=== PATIENT | male | born 1985 | race Two or more races ===

== ENCOUNTER 2019-07-13 21:58 | Emergency (ER) | payer OTHER ==
[~2019-07-13] VITALS: Ht 172.7 cm; Wt 100.2 kg
[2019-07-13] MEDS ORDERED: TDAP [DIPH/PERTUSSIS/TET] 0.5 ML VIAL IM ONE ×2 (23:00→23:04)
--- NOTE | 2019-07-13 23:00 | NUR ---
BIBS FOR C/O R HAND LACERATION S/P CUT W/ A GLASS CUP. ACTIVE BLEEDING
[2019-07-13] MEDS ORDERED: LIDOCAINE 1% INJ 50 ML MDV IJ ONE (23:23)
[2019-07-14] MEDS ORDERED: IBUPROFEN 600 MG TABLET PO ONE ×2 (00:51→01:00)
--- NOTE | 2019-07-14 00:58 | NUR ---
LAC W/ 4 SUTURES COVERED W/ DD. SECURED W/ KERLIX. NO MORE BLEEDING NOTED. Patient discharged to home in stable condition. Rx and Written and verbal after care instructions given. Patient verbalizes understanding of instruction.
[2019-07-14 02:03] VITALS: BP 127/77
== END 2019-07-14 01:00 | disposition home or self-care (01) ==
LOC: ER 22:01
DX: S61.411A Laceration without foreign body of right hand, initial encounter (principal); W26.8XXA Contact with other sharp object(s), not elsewhere classified, initial encounter; Y93.89 Activity, other specified; Y92.89 Other specified places as the place of occurrence of the external cause; Y99.8 Other external cause status
CPT/HCPCS: 12002; 90471; 90715; 99283; A6403 ×3; J3490

== ENCOUNTER 2019-07-23 15:53 | Emergency (ER) | payer OTHER | END 2019-07-23 18:34 | disposition home or self-care (01) | LOC: ER 15:55 | DX: S61.411D Laceration without foreign body of right hand, subsequent encounter (principal); W25.XXXD Contact with sharp glass, subsequent encounter ==